=== PATIENT | male | born 1985 | race African-American/Black ===

== ENCOUNTER 2016-12-18 10:26 | Emergency (ER) | payer SELFPAY ==
[~2016-12-18] VITALS: Ht 175.3 cm; Wt 79.8 kg
[2016-12-18 10:47] VITALS: BP 151/93
[2016-12-18 11:33] LABS: APPEARANCE,URINE CLEAR; KETONES,URINE NEGATIVE (NEGATIVE); LEUKOCYTE ESTERASE ,URINE NEGATIVE (NEGATIVE); NITRITE,URINE NEGATIVE (NEGATIVE); PH,URINE 6.5 (4.5-8.0); PROTEIN,URINE 1+ (NEGATIVE); UROBILINOGEN,URINE NORMAL MG/DL (0.0-1.0)
[2016-12-18] MEDS ORDERED: NKM (11:44)
[2016-12-18 11:47] LABS: BACTERIA,URINE OCCASIONAL /HPF; RBC,URINE 20-30 /HPF (0 - 0); SQUAMOUS EPITHELIAL CELL,UR OCCASIONAL /LPF (NONE/OCC); WBC,URINE 0-2 /HPF (0 - 0)
--- NOTE | 2016-12-18 12:18 | Emergency Room Report ---
History of Present Illness General Chief Complaint: Male Urogenital Problems Source: Patient Present Illness HPI The patient states he has a "weird" sensation in his bladder area that radiates through his penis. He denies testicular pain. He denies injury. He denies penile discharge. He denies dysuria or hematuria. He denies risky sexual behaviors. He denies lesions. He denies pain. He has no other complaints. Allergies: Coded Allergies: No Known Allergies (Unverified , 12/18/16) Patient History Past Medical History: none, see triage record Past Surgical History: none Social History: Denies: alcohol use, drug use, smoking Reviewed Nursing Documentation: PMH: Agreed, PSxH: Agreed Nursing Documentation-PMH Past Medical History: No Stated History Review of Systems All Other Systems: negative except mentioned in HPI Physical Exam Vital Signs Date Time Temp Pulse Resp B/P Pulse Ox O2 Delivery O2 Flow Rate FiO2 12/18/16 10:47 98.1 70 19 151/93 99 Room Air Sp02 EP Interpretation: reviewed, normal General Appearance: no apparent distress, alert, GCS 15, non-toxic Head: normocephalic, atraumatic Eyes: bilateral eye PERRL, bilateral eye normal inspection ENT: hearing grossly normal, normal pharynx, no angioedema, normal voice Neck: full range of motion, supple/symm/no masses Respiratory: no respiratory distress, no retraction, no accessory muscle use, speaking full sentences Cardiovascular #1: no edema Gastrointestinal: normal bowel sounds, non tender, soft, non-distended, no guarding, no rebound Rectal: deferred Genitourinary: penis normal, scrotum normal Musculoskeletal: back normal, gait/station normal, normal range of motion, non- tender, calf tenderness Neurologic: alert, oriented x3, responsive, motor strength/tone normal, sensory intact, speech normal Psychiatric: judgement/insight normal, memory normal, mood/affect normal, no suicidal/homicidal ideation Skin: normal color, no rash, warm/dry, well hydrated Medical Decision Making Diagnostic Impression: Primary Impression: Hematuria ER Course This patient presents her a weird sensation in his penis and bladder. Urinalysis only shows some red blood cells. There is no evidence of infection. The patient denies this he sexual activity. The physical exam is benign. I did not identify an emergency medical condition. The hematuria is likely related to mild trauma related to sexual intercourse. Patient is low risk for bladder cancer. The patient is instructed to followup closely with his primary care physician. The patient is given return precautions and followup instructions. Labs Test 12/18/16 10:51 Urine Color Pale yellow Urine Appearance Clear Urine pH 6.5 (4.5-8.0) Urine Specific [place] 1.020 (1.005-1.035) Urine Protein 1+ (NEGATIVE) Urine Glucose (UA) Negative (NEGATIVE) Urine Ketones Negative (NEGATIVE) Urine Occult Blood 4+ (NEGATIVE) Urine Nitrite Negative (NEGATIVE) Urine Bilirubin Negative (NEGATIVE) Urine Urobilinogen Normal MG/DL (0.0-1.0) Urine Leukocyte Esterase Negative (NEGATIVE) Urine RBC 20-30 /HPF (0 - 0) Urine WBC 0-2 /HPF (0 - 0) Urine Squamous Epithelial Cells Occasional /LPF Urine Bacteria Occasional /HPF (NONE) Last Vital Signs Date Time Temp Pulse Resp B/P Pulse Ox O2 Delivery O2 Flow Rate FiO2 12/18/16 10:47 98.1 70 19 151/93 99 Room Air Status: improved Disposition: HOME, SELF-CARE Condition: Improved Referrals: NOT CHOSEN DANIELITO/,REFERRING (PCP) CARMEN HUYNH D.O. December 18, 2016 12:18
[2016-12-18] MEDS ORDERED: PERMETHRIN60 GM TOPIC (12:44)
[2016-12-18] MEDS ORDERED: Azithromycin 250mg tab ORAL ONE (12:45)
[2016-12-18] MEDS ORDERED: Lidocaine 1% Plain 30 ml INJ ONE (12:48)
[2016-12-18 13:15] VITALS: BP 151/93
== END 2016-12-18 13:15 | disposition home or self-care (01) ==
LOC: EMR 11:35
DX: R31.9 Hematuria, unspecified (principal); Z20.2 Contact with and (suspected) exposure to infections with a predominantly sexual mode of transmission
CPT/HCPCS: 81003; 96372; 99283; J0696